=== PATIENT | female | born 1985 | race Caucasian/White ===

== ENCOUNTER → 2019-06-21 09:26 | Outpatient (CLI) | payer OTHER | END | disposition home or self-care (01) | LOC: LAB 09:26 → LAB SALUS 09:26 | DX: Z13.220 Encounter for screening for lipoid disorders (principal); Z11.4 Encounter for screening for human immunodeficiency virus [HIV]; Z72.51 High risk heterosexual behavior; Z11.3 Encounter for screening for infections with a predominantly sexual mode of transmission ==

== ENCOUNTER 2019-06-28 08:08 | Outpatient (CLI) | payer OTHER | END 2019-06-28 08:23 | disposition home or self-care (01) | LOC: LAB 08:08 | DX: N92.5 Other specified irregular menstruation (principal) ==

== ENCOUNTER 2019-09-10 08:18 | Emergency (ER) | payer OTHER ==
[~2019-09-10] VITALS: Ht 152.4 cm; Wt 93.0 kg
== END 2019-09-10 19:42 | disposition home or self-care (01) ==
LOC: ER 08:18
DX: B33.8 Other specified viral diseases (principal); B96.0 Mycoplasma pneumoniae [M. pneumoniae] as the cause of diseases classified elsewhere

== ENCOUNTER 2022-12-03 08:57 | Outpatient (CLI) | payer OTHER | END 2022-12-03 09:05 | disposition home or self-care (01) | LOC: RX STUDY 08:57 | PROVIDERS: ATTEND Internal Medicine | DX: R11.0 Nausea (principal); R11.14 Bilious vomiting; R13.12 Dysphagia, oropharyngeal phase ==